=== PATIENT | male | born 1970 | race Caucasian/White ===

== ENCOUNTER 2024-07-24 07:43 | Inpatient (IN) | payer OTHER, SELFPAY ==
[2024-07-24] MEDS ORDERED: Ondansetron PF 4 MG/2 ML Vial IVP PRN (09:29)
[2024-07-24] MEDS ORDERED: Ondansetron ODT 4 MG TAB PO PRN (09:29)
[2024-07-24] MEDS ORDERED: Acetaminophen 650 MG Suppository PR PRN (09:29)
[2024-07-24] MEDS ORDERED: Calcium Carbonate 500 MG ChewTAB PO PRN (09:29)
[2024-07-24] MEDS ORDERED: Acetaminophen 325 MG TAB PO PRN (09:29)
[2024-07-24] MEDS ORDERED: Senokot S 8.6-50 MG TAB PO PRN (09:29)
[2024-07-24 10:10] LABS: Magnesium 2.3 mg/dL (1.6-2.6)
[2024-07-24 10:16] LABS: Troponin I 0.118 ng/mL (< 0.028)
[2024-07-24 12:29] LABS: INR-International Normal Ratio 1.3; Prothrombin Time 16.2 sec (12.0-14.7)
[2024-07-24] MEDS: Carvedilol 6.25 MG TAB PO SCH (16:12)
[2024-07-24] MEDS: Furosemide 40 MG (4 mL) VIAL SLOW IVP SCH (16:13)
[2024-07-24] MEDS: Potassium Chloride 10 MEQ TAB PO SCH (20:13)
[2024-07-25 07:39] LABS: Hematocrit 44.3 % (42.0-52.0); Hemoglobin 14.4 g/dL (14.0-18.0); Mean Corpuscular HGB CONC 32.5 g/dL (32.0-36.0); Mean Corpuscular Hemoglobin 29.8 pg (27.0-31.0); Mean Corpuscular Volume 91.7 fL (78.0-98.0); Mean Platelet Volume 12.1 fL (7.4-10.4); Platelet Count 250 10x3/uL (130-400); Red Blood Cell (RBC) Count 4.83 mill/uL (4.70-6.10)
[2024-07-25 07:42] LABS: ALT (SGPT) 14 U/L (8-55); AST (SGOT) 17 U/L (5-34); Albumin 3.6 g/dL (3.5-5.0); Alkaline Phosphatase 108 U/L (40-110); Anion Gap 14 mmol/L (10-20); BUN (Urea Nitrogen) 22 mg/dL (8.4-25.7); Bilirubin, Total 1.3 mg/dL (0.2-1.2); Calc. Creatinine Clearance 107 mL/min (70-130); Calcium 8.6 mg/dL (7.8-10.44); Carbon Dioxide 24 mmol/L (22-29); Chloride 106 mmol/L (98-107); Estimated GFR 55; Globulin 3.2 g/dL (2.4-3.5); Glucose 108 mg/dL (70-105); Potassium 4.2 mmol/L (3.5-5.1); Protein, Total 6.8 g/dL (6.0-8.3); Sodium 140 mmol/L (136-145)
[2024-07-25 08:09] LABS: Band 1 % (5-11); Eosinophils 26 % (0-10); Lymphocytes 11 % (21-51); Monocytes 2 % (0-10); Neutrophil 55 % (42-75); Ovalocytes SLIGHT = 2-5 cells HPF (0-1); Platelet Adequacy Comment Platelets Normal; Polychromasia SLIGHT = 2-3 cells HPF (0-2); Reactive Lymphocytes 4 % (0-10)
[2024-07-25] MEDS: Aspirin 81 mg Enteric Coated Tablet PO SCH (08:17)
[2024-07-25] MEDS: Enoxaparin 40 MG (0.4 mL) SYRINGE SC SCH (08:17)
[2024-07-25] MEDS: Empagliflozin 10 MG TAB PO SCH (08:18)
[2024-07-25] MEDS: Furosemide 40 MG (4 mL) VIAL SLOW IVP SCH ×2 (08:18→13:09)
[2024-07-25 14:33] VITALS: BMI 36.4
[2024-07-25] MEDS: Apixaban 5 MG TAB PO SCH (20:19)
[2024-07-26 05:40] LABS: Anion Gap 12 mmol/L (10-20); BUN (Urea Nitrogen) 24 mg/dL (8.4-25.7); Calc. Creatinine Clearance 97 mL/min (70-130); Calcium 8.6 mg/dL (7.8-10.44); Carbon Dioxide 24 mmol/L (22-29); Chloride 105 mmol/L (98-107); Estimated GFR 52; Glucose 118 mg/dL (70-105); Magnesium 2.5 mg/dL (1.6-2.6); Potassium 4.2 mmol/L (3.5-5.1); Sodium 137 mmol/L (136-145)
[2024-07-26 16:14] LABS: Amphetamine Detected (NotDetected); Barbiturates Screen Not Detected (NotDetected); Benzodiazepine Screen Not Detected (NotDetected); Cocaine Metabolite Screen Not Detected (NotDetected); Methadone Not Detected (NotDetected); Methamphetamine Detected (NotDetected); Opiate Screen Not Detected (NotDetected); Oxycodone Screen Not Detected (NotDetected); Phencyclidine (PCP) Not Detected (NotDetected); THC/Cannabinoid Screen Not Detected (NotDetected); Tricyclic Screen Not Detected (NotDetected)
[2024-07-27] MEDS: Metolazone 2.5 MG TAB PO SCH (05:19)
[2024-07-27 09:30] LABS: Anion Gap 15 mmol/L (10-20); BUN (Urea Nitrogen) 24 mg/dL (8.4-25.7); Calc. Creatinine Clearance 95 mL/min (70-130); Calcium 8.8 mg/dL (7.8-10.44); Carbon Dioxide 25 mmol/L (22-29); Chloride 104 mmol/L (98-107); Estimated GFR 52; Glucose 136 mg/dL (70-105); Magnesium 2.6 mg/dL (1.6-2.6); Potassium 3.6 mmol/L (3.5-5.1); Sodium 140 mmol/L (136-145)
[2024-07-27] MEDS: Furosemide 40 MG TAB PO SCH (14:07)
[2024-07-28 05:39] LABS: Anion Gap 16 mmol/L (10-20); BUN (Urea Nitrogen) 27 mg/dL (8.4-25.7); Calc. Creatinine Clearance 107 mL/min (70-130); Carbon Dioxide 23 mmol/L (22-29); Chloride 100 mmol/L (98-107); Estimated GFR 61; Glucose 86 mg/dL (70-105); Potassium 3.6 mmol/L (3.5-5.1); Sodium 135 mmol/L (136-145)
[2024-07-28] MEDS: Metolazone 2.5 MG TAB PO SCH (08:12)
[2024-07-28 16:46] VITALS: BP 115/74
[2024-07-28 17:39] VITALS: TEMP 97.6
== END 2024-07-28 19:14 | disposition home or self-care (01) | DRG 291 ==
LOC: OBS 08:51 → OBSVTOIN 10:47
PROVIDERS: ADMIT Internal Medicine; ATTEND Family Medicine
DX: I13.0 Hypertensive heart and chronic kidney disease with heart failure and stage 1 through stage 4 chronic kidney disease, or unspecified chronic kidney disease (principal); I50.23 Acute on chronic systolic (congestive) heart failure; N17.9 Acute kidney failure, unspecified; I42.8 Other cardiomyopathies; I51.3 Intracardiac thrombosis, not elsewhere classified; E78.5 Hyperlipidemia, unspecified; N18.2 Chronic kidney disease, stage 2 (mild); E66.01 Morbid (severe) obesity due to excess calories; Z88.0 Allergy status to penicillin; Z79.82 Long term (current) use of aspirin; Z79.899 Other long term (current) drug therapy; Z91.148 Patient's other noncompliance with medication regimen for other reason; Z68.34 Body mass index [BMI] 34.0-34.9, adult
CPT/HCPCS: 36415; 80048; 80053; 80306; 83735; 85025; 85610; 93306; 93798; J1650; J1940